=== PATIENT | male | born 1955 | race Caucasian/White ===

== ENCOUNTER 2023-04-24 15:07 | Inpatient (IN) | payer OTHER ==
[~2023-04-24] VITALS: Ht 182.9 cm; Wt 124.0 kg
[~2023-04-24 15:07] MED LIST: NAPROXEN500 MG PO
[2023-04-24 15:20] LABS: BASOPHILS 0.7 % (0-2); EOSINOPHILS 0.5 % (0-6); HEMATOCRIT 46.4 % (35.0-50.0); HEMOGLOBIN 16.1 g/dL (12.0-18.0); MCHC 34.6 g/dl (30-36); MCV 89.6 fl (81-99); MONOCYTES 6.6 % (0-12); NEUTROPHILS 70.2 % (39-80); PLATELET COUNT 260 K/uL (140-440); RBC 5.19 M/ul (4.3-5.7); RDW 12.3 (10.5-15.0)
[2023-04-24 15:26] LABS: PARTIAL THROMBOPLASTIN TIME 29.4 Sec (22.9-41.3)
[2023-04-24 15:27] LABS: INR 0.94 (0.80-1.30); PROTIME 11.9 Sec (11.2-14.2)
[2023-04-24 15:33] LABS: ALBUMIN 3.7 g/dL (3.4-5.0); ALBUMIN/GLOBULIN RATIO 1.03 (1.1-2.4); BILIRUBIN, TOTAL 0.4 ng/dL (0.2-1.0); CREATININE, SERUM 1.25 mg/dL (0.70-1.30); PROTEIN, TOTAL 7.3 g/dL (6.4-8.2)
[2023-04-24] MEDS ORDERED: FENOFIBRATE145 MG PO (16:23)
[2023-04-24] MEDS ORDERED: ATHLETIC FOOT C30 GM TOP (16:24)
[2023-04-24] MEDS ORDERED: METFORMIN HCL500 M2 PO (16:24)
[2023-04-24] MEDS ORDERED: ZESTRIL10 MG PO (16:25)
[2023-04-24] MEDS ORDERED: GLIPIZIDE XL10 MG PO (16:25)
[2023-04-24] MEDS ORDERED: LIPITOR40 MG PO (16:26)
[2023-04-24 18:06] LABS: AMPHETAMINES, UR NEGATIVE (NEGATIVE); BARBITURATES, UR NEGATIVE (NEGATIVE); BENZODIAZEPINES, UR NEGATIVE (NEGATIVE); BUPRENORPHINE,UR NEGATIVE (NEGATIVE); COCAINE, UR NEGATIVE (NEGATIVE); MARIJUANA (THC), UR NEGATIVE (NEGATIVE); MDMA, UR NEGATIVE (NEGATIVE); METHADONE, UR NEGATIVE (NEGATIVE); METHAMPHETAMINE, UR NEGATIVE (NEGATIVE); OPIATES, UR NEGATIVE (NEGATIVE); OXYCODONE, UR NEGATIVE (NEGATIVE); PHENCYCLIDINE, UR NEGATIVE (NEGATIVE); TRICYCLIC ANTIDEPRESSANT, UR NEGATIVE (NEGATIVE)
[2023-04-24 20:06] VITALS: BP 175/75
--- NOTE | 2023-04-24 20:40 | NUR ---
2015 - Pt admitted from ER via stretcher. Pt coop with admit questions and assessment. Oriented to room and procedures. Neuro checks doneon admit, L droop, L sided weakness. tele#[address] SR[address] no c/o CP, does c/o numbness left side face extremties. bruised area uner L little toes present, not open. very dry skin at feet bilat. wearing 4 point EOCI restraints. Due to void. Passed bedside swallowing evaluation. stated he does not eat pork and his diet is closer to rastafari diet, . alert to self, date, surrounding, . 2EOCI guards in room
--- NOTE | 2023-04-24 22:29 | EKG ---
[facility] [address] [place] [address] Signed Normal sinus rhythm Right bundle branch block Abnormal ECG No previous ECGs available Confirmed by Felice Griffiths MD () on 04/24/2023 10:29:16 PM Electronically Signed By: FELICE GRIFFITHS MD 04/24/232228 PATIENT NAME: MAHESH SHEPHERD Electrocardiogram DATE OF : 57 PHYSICIAN: FELICE GRIFFITHS MD REPORT #: [id number] REPORT IS CONFIDENTIAL AND NOT TO BE RELEASED WITHOUT AUTHORIZATION
[2023-04-25] VITALS (11 sets, daily range): BP systolic 143–168; BP diastolic 63–83
--- NOTE | 2023-04-25 00:30 | NUR ---
AWAKES EASILY, ON ROOM AIR, DENIES CP. CONTINUES TO HAVE NUMBNESS AND TINGLING L SIDE, DROOPINES L MOUTH. ANSWERS APPROPIATELY. HAS VOIDED NAD TOLERATED SANDWICH BOX CONTENTS, 4 POINT RESTRAINTS PER EOCI. 2 EOCI GUARDS IN ROOM MRI PAPERWORK COMPLETED AND FAXED TO [facility]
--- NOTE | 2023-04-25 02:26 | NUR ---
pt awakes easily, no c/o CP, continues to have numbness andtingling Left face and L side. tele#3 in place, SR. Coop with assessment. wearing 4 point shckles as per EOCI. legs elevated. tolerating liquids well. 2 EOCI guards in room
--- NOTE | 2023-04-25 04:54 | NUR ---
AWAKES EASILY, ON ROOM AIR, NO CHANGES FROM ADMIT ASSESSMENT, L MOUTH DROOP AND LEFT SIDED WEAKNESS STILL PRESENT. TELE#[address] SINUS RHYTHM. DENIES CP. NEURO CHECKS NO CHANGES. PUPILS FIXED BUT MOVES EYES AND TRACKS CORRECTLY.
[2023-04-25 05:38] LABS: BASOPHILS 0.6 % (0-2); EOSINOPHILS 0.6 % (0-6); HEMOGLOBIN 15.1 g/dL (12.0-18.0); MCHC 33.6 g/dl (30-36); MCV 89.3 fl (81-99); MONOCYTES 8.8 % (0-12); PLATELET COUNT 232 K/uL (140-440); RBC 5.04 M/ul (4.3-5.7); RDW 12.7 (10.5-15.0)
[2023-04-25 05:58] LABS: ALBUMIN 3.3 g/dL (3.4-5.0); ALBUMIN/GLOBULIN RATIO 0.97 (1.1-2.4); ANION GAP 14.2 (7-21); BILIRUBIN, TOTAL 0.5 ng/dL (0.2-1.0); BUN/CREATININE RATIO 14.54 (6.0-28.6); CALCIUM 8.8 mg/dL (8.5-10.1); CHOLESTEROL/HDL RATIO 2.3; CREATININE, SERUM 1.1 mg/dL (0.70-1.30); MAGNESIUM 1.9 mg/dL (1.8-2.4); PHOSPHORUS, INORGANIC 4.4 mg/dL (2.5-4.9); POTASSIUM 4.2 mmol/L (3.5-5.1); PROTEIN, TOTAL 6.7 g/dL (6.4-8.2)
--- NOTE | 2023-04-25 07:05 | NUR ---
HANDOFF REPORT RECEIVED FROM CASCADE OPERATOR RN. PT RESTING IN BED. EOCI OFFICERS AT BEDSIDE.
--- NOTE | 2023-04-25 09:35 | NUR ---
PER AM MEETING PATIENT LIKELY TO DC TODAY AFTER DIAGNOSTIC ASSESSMENTS COMPLETED. SPOKE WITH RN AT [facility]. THEY ARE ABLE TO PROVIDE PT/OT FOR THE PATIENT IF NEEDED. OKAY FOR PATIENT TO RETURN WHEN READY. UPDATED CLINICALS SENT.
--- NOTE | 2023-04-25 09:58 | NUR ---
PT RESTING IN BED, EATING BREAKFAST. EOCI OFFICERS AT BEDSIDE. PT ON RELL KENA, LUNG SOUNDS CLEAR. [facility] STOKE SCORE 2 FOR FACIAL PALSY AND SENSORY. 1+ EDEMA IN BLE, PULSES STRONG. MORNING MEDICATIONS ADMINISTERED BY STUDENT WITH INSTRUCTOR. PT DENIES OTHER NEEDS AT THIS TIME.
--- NOTE | 2023-04-25 10:15 | NUR ---
PT ASSISTED TO BED SIDE COMMODE. PT WITH LEFT LEG WEAKNESS, UNSTABLE ON FEET, HIGH FALL RISK. DISCUSSED WITH Winston
--- NOTE | 2023-04-25 11:54 | NUR ---
UR NOTE [facility] STROKE: ISCHEMIC: OBSERVATION CARE (ISC) 04/24/23 MET OBSERVATION CARE ADMISSION CRITERIA
--- NOTE | 2023-04-25 12:25 | NUR ---
PT GIVEN 5 UNITS SS HUMALOG FOR BG 228. PT CURRENTLY HAVING ECHO COMPLETED.
--- NOTE | 2023-04-25 12:35 | NUR ---
NURSE RN BSN ASSISTED WITH AGITATED SALINE STUDY. ECHO COMPLETED.
--- NOTE | 2023-04-25 14:58 | NUR ---
PT SITTING IN CHAIR, JUST FINISHED WITH PT/OT. PT DENIES NEEDS AT THIS TIME.
--- NOTE | 2023-04-25 16:00 | NUR ---
REPORT RECEIVED FROM RN CARE ASSUMED. PT UP IN THE CHAIR RESTING AGREES HE IS COMFORTABLE AND DENIES NEED OF ANYTHING. ANTHONY PRESENT X2
--- NOTE | 2023-04-25 18:07 | NUR ---
PT FINISHES ENTIRE EVENING MEAL AGREES HE IS FULL. DENIES DISCOMFORTS OR NEEDS. DECLINES OFFER OF RESTING IN BED CHOOSING TO STAY IN THE CHAIR WATCHING TV. ANTHONY PRESENT X2
--- NOTE | 2023-04-25 20:57 | NUR ---
Sitting up in chair. pt on room air. 4 point restraints as per EOCI, 2 guards in room.. neuro checks done, L droopines mouth. L sided weakness. edema to L hand and LE. while waiting for another staff to help with transferring he stood up and tried to get into bed, very unsteady, sat in bed and leaned towards left side, icought by guard. Pt instructed to wait for nursing personnel to help him with transfers to avoid falls. stated understanding. Tele# [address] SR, denies CP. continues to have numbness and tingling of Left extremities. CBG 140, no SS insulin needed. ESL, speaks clear broken Armenian. cooperative. 2 SL patent. Uses urinal
--- NOTE | 2023-04-25 22:56 | NUR ---
RESTING, L SIDE, TELE IN PLACE, 4 POINT REASTRAINT. [address]
[2023-04-26] VITALS (11 sets, daily range): BP systolic 143–157; BP diastolic 63–87
--- NOTE | 2023-04-26 01:02 | NUR ---
RESTING, EYES CLOSED, NO S/SX DISTRESS, TELE#3 IN PLCE SR. EOCI SHACKLES IN PLACE, 2 GUARDS
--- NOTE | 2023-04-26 02:44 | NUR ---
awakes easily, coop with vitals, still with L droop, weakness Left sided
[2023-04-26 05:26] LABS: BASOPHILS 0.5 % (0-2); EOSINOPHILS 1.6 % (0-6); HEMATOCRIT 45.7 % (35.0-50.0); HEMOGLOBIN 15.4 g/dL (12.0-18.0); LYMPHOCYTES 29.3 % (24-44); MCH 30.3 (27-36); MCHC 33.7 g/dl (30-36); MCV 89.9 fl (81-99); MONOCYTES 9.5 % (0-12); NEUTROPHILS 59.1 % (39-80); PLATELET COUNT 225 K/uL (140-440); RBC 5.08 M/ul (4.3-5.7); RDW 12.3 (10.5-15.0)
[2023-04-26 05:35] LABS: ANION GAP 13.2 (7-21); BUN/CREATININE RATIO 13.55 (6.0-28.6); CALCIUM 8.7 mg/dL (8.5-10.1); CREATININE, SERUM 1.18 mg/dL (0.70-1.30); POTASSIUM 4.2 mmol/L (3.5-5.1)
--- NOTE | 2023-04-26 07:46 | NUR ---
RECEIVED REPORT FROM VINCENT BETHEA. PT RESTING IN BED WITH EYES CLOSED, TWO COs AT THE BEDSIDE. PT ALLOWED TO REST. ASSUMING CARE OF PT.
--- NOTE | 2023-04-26 08:34 | NUR ---
PT SITTING UP IN BED EATING BREAKFAST, TWO COs AT THE BEDSIDE. PT DENIES PAIN/NAUSEA/SOB THIS MORNING. PT A+O X3, SPEECH IS CLEAR. LEFT SIDE REMAINS WEAK, ABLE TO PLANTAR FLEX AND DORSIFLEX AGAINST RESISTENCE. PUPILS 3 BILATERALLY, SLUGGISH. LUNG SOUNDS CLEAR IN ALL LOBES. TELEMETRY REMAINS ON, SINUS RYTHYM IN THE 60s PER TELE. LEFT HAND HAS GENERALIZED EDEMA, NO EDEMA REMAINING IN BLE. [address] D/T EOCI. PT STATES LEFT SIDE REMAINS "MOSTLY NUMB". BOWEL TONES ACTIVE IN ALL QUADRANTS, PT TOLERATING 60G CARB DIET WELL. PT STATES NO NEEDS AT THIS TIME, CALL LIGHT WITHIN REACH.
--- NOTE | 2023-04-26 10:05 | NUR ---
PHYSICAL THERAPY IN ROOM WORKING WITH PT.
--- NOTE | 2023-04-26 10:18 | NUR ---
SPOKE WITH HAYDE RONDON WITH THE [facility]. DISCUSSED THAT MD AND PT/OT/ST ARE RECOMMENDING INPATIENT REHAB FOR THE PATIENT AT THIS TIME. HAYDE STATES THEY REFERRAL PATIENTS TO [facility] OR [facility] TO SEND REFERRAL AT THIS TIME. WHEN THE PATIENT IS ACCEPTED CONTACT HAYDE [phone] GRIFFITHS, PT/OT AND KAMALA ACOSTA RN NOTIFIED. REFERRAL FAXED TO [facility] [phone].
--- NOTE | 2023-04-26 10:25 | NUR ---
UR Review: [facility] ADA – ADA review - Stroke Ischemic ISC - Inpatient. 04/25/2022 - Met inpatient guidelines for Ischemic Stroke. Guideline day 1.
--- NOTE | 2023-04-26 10:50 | NUR ---
SBA WHILE PATIENT USED URINAL. 2 OFFICERS IN ROOM. PATIENT BACK INTO RECLINER AT THSI TIME
--- NOTE | 2023-04-26 11:26 | NUR ---
PT UP TO CHAIR AFTER PHYSICAL THERAPY, STATES HE IS DOING THE EXCERSICIES PHYSICAL THERAPY PRINTED OUT FOR HIM. PT DENIES PAIN, STATES NO NEEDS AT THIS TIME.
--- NOTE | 2023-04-26 12:01 | NUR ---
PT UP TO CHAIR EATING LUNCH. STATES NO NEEDS AT THIS TIME. TWO COs AT THE BEDSIDE.
--- NOTE | 2023-04-26 12:57 | NUR ---
SPOKE WITH [facility] IN [place]. PATIENT HAS BEEN ACCEPTED WHEN THEY HAVE A BED AVAILABLE. AT THIS TIME DUE TO THE WEATHER THEY DO NOT BELIEVE THEY WILL HAVE A BED UNTIL EARLY NEXT WEEK. WILL FOLLOW UP WITH [facility] ALVARE[facility]TH[facility] TO DISCUSS OPTIONS.
--- NOTE | 2023-04-26 13:02 | NUR ---
LEFT MESSAGE FOR ADMISSIONS AT [facility] REQUESTING RETURN CALL REGARDING REFERRAL. PHONE [phone].
--- NOTE | 2023-04-26 13:20 | NUR ---
THIS RN ANSWERS CALL LIGHT. PT STATES HE NEEDS TO USE RESTROOM. PT AMBULATES TO RESTROOM WITH X2 PERSON ASSIST AND FWW. PT HAS BM, NEEDS ASSISTANCE WITH CLEANING SELF AFTER. LINENS CHANGED. PT AMBULATES WITH X2PA AND FWW TO BED. PT STATES NO FURTHER NEEDS AT THIS TIME, CALL LIGHT WITHIN REACH, BED RAILS UP. 4 POINT RESTRAINTS REMAIN IN PLACE, TWO COs AT THE BEDSIDE.
--- NOTE | 2023-04-26 13:30 | NUR ---
NO CHANGE IN NEURO ASSESSMENT FROM MORNING ASSESSMENT, PT STATES LEFT SIDE REMAINS WEAK, PUPILS REMAIN SLUGGISH. PT CONTINUES TO USE X1-2PA AND FWW FOR AMBULATION, A+O X3. PT HAS BEEN ABLE TO EAT MEALS AND TAKE MEDICATIONS WITHOUT DIFFICULTY THIS SHIFT.
--- NOTE | 2023-04-26 14:40 | NUR ---
PATIENT RESTING IN BED, WOKE TO VOICE. VITALS AND I&OS CHARTED. 2 OFFICERS IN ROOM.
--- NOTE | 2023-04-26 15:53 | NUR ---
PT RESTING WITH EYES CLOSED ON R SIDE. RR 16 EVEN AND UNLABORED. TWO COs AT BEDSIDE. CALL LIGHT WITHIN REACH.
--- NOTE | 2023-04-26 18:31 | NUR ---
PT SITTING UP IN BED WATCHING TV. PT FINISHED EATING DINNER, REQUESTS TO BRUSH TEACH USING MIRROR FOR OT ACTIVITY. PT ASSISTED WITH PUTTING TOOTHPASTE ON TOOTHBRUSH, INDEPENDENTLY BRUSHES TEETH AND RINSES MOUTH. PT STATES NO FURTHER NEEDS AT THIS TIME, TWO COs AT BEDSIDE.
--- NOTE | 2023-04-26 19:48 | NUR ---
REPORT RECEIVED FROM VINCENT TOTH. pt UP IN CHAIR. GUARDS IN ROOM. pt DENIES NEEDS. CALL LIGHT IN REACH.
--- NOTE | 2023-04-26 21:12 | NUR ---
1PA W FWW FROM CHAIR TO BED WITH GAIT BELT ON FOR SAFETY. pt GAIT STEADY. WEAKNESS NOTED ON LEFT SIDE. NEURO CHECK COMPLETE. IV SITES SL WNL. SS INSULIN ADMINISTERED PER ORDERS. CALL LIGHT IN REACH. GUARDS IN ROOM. pt DENIES PAIN, DENIES TOILETING OR ADDITIONAL NEEDS.
[2023-04-27] VITALS (7 sets, daily range): BP systolic 132–151; BP diastolic 74–86
--- NOTE | 2023-04-27 00:19 | NUR ---
CHECKED ON pt. RESTING IN BED ON LEFT SIDE, BREATHING EQUAL AND UNLABORED. GUARDS IN ROOM, CHANGING SHIFTS AT THIS TIME. CALL LIGHT IN REACH.
--- NOTE | 2023-04-27 03:08 | NUR ---
pt RESTING IN BED AWAKE, STATES "I CAN'T SLEEP WITH TV ON". TV OFF AT THIS TIME. NEURO CHECK COMPLETE, UNCHANGED. GUARDS PRESENT IN ROOM. DRINK OF WATER PROVIDED TO pt. pt DENIES TOILETING NEEDS. CALL LIGHT IN REACH.
--- NOTE | 2023-04-27 06:30 | NUR ---
pt RESTING IN BED AWAKE, DOING EXERCISES FROM PT. NEURO CHECK COMPLETE. UNCHANGED. URINAL EMPTIED. ICE WATER REFILLED. CALL LIGHT IN REACH. GUARDS IN ROOM.
--- NOTE | 2023-04-27 07:36 | NUR ---
RECEIVED REPORT FROM VINCENT LA. ASSUMING CARE OF PT.
--- NOTE | 2023-04-27 11:10 | NUR ---
PT SITTING UP IN BED AWAKE AND ALERT. A+O X3. PT SKIN MOIST, STATES HE HAS BEEN DOING HIS PHYSICAL THERAPY EXCERCISES. LEFT SIDE REMAINS WEAK, PT ABLE TO MOVE FINGERS ON LEFT HAND MORE THAN YESTERDAY, PT STATES L SIDE NUMBNESS HAS MILDLY IMPROVED SINCE YESTERDAY. PT TOLERATING 60G CARB DIET WELL. PT HAS NOT VOIDED SINCE PREVIOUS SHIFT, PO FLUIDS ENCOURAGED, MORE ICE WATER GIVEN. NO CHANGE IN SKIN SINCE YESTERDAY. PT STATES NO NEEDS AT THIS TIME, TWO COs AT THE BEDSIDE, URINAL AT THE BEDSIDE.
--- NOTE | 2023-04-27 11:38 | NUR ---
CALLED [facility] IN [place] TO FOLLOW-UP ON REFERRAL SENT. NO ANSWER. MESSAGE LEFT. [phone]
--- NOTE | 2023-04-27 13:48 | NUR ---
THIS NURSE TALKS WITH DR. GRIFFITHS TO UPDATE ON PT OUTPUT STATUS AND BLOOD PRESSURE. MD AWARE, NEW ORDERS ENTERED, REPEAT BACK PERFORMED.
--- NOTE | 2023-04-27 13:53 | NUR ---
ROUNDS. PHYSICAL THERAPY WORKING WITH PT. DID NOT INTERRUPT. PROVIDED SILENT PRAYER.
--- NOTE | 2023-04-27 14:10 | NUR ---
BLADDER SCAN COMPLETED PER JEROMY FROM DR. GRIFFITHS. 312ML SHOWN ON SCAN. PT STATES NO PAIN OR DISCOMFORT, EDUCATION ON FLUID INTAKE AND VOIDING, PT VERBALIZES UNDERSTANDING. PT STATES NO FURTHER NEEDS AT THIS TIME, PT REMAINS UP TO CHAIR AFTER PHYSICAL THERAPY.
--- NOTE | 2023-04-27 14:31 | NUR ---
UR NOTE MCG STROKE: ISCHEMIC (ISC) INPATIENT 04/26/23 MET GL DAY 2 04/27/23 VARIANCE GL DAY 3
--- NOTE | 2023-04-27 15:45 | NUR ---
PT UP TO CHAIR A+O X3. NO CHANGE IN NEURO ASSESSMENT FROM MORNING. PT CONTINUES TO HAVE NUMBNESS AND WEAKNESS ON THE LEFT SIDE, CONTINUES TO BE ABLE TO MOVE POINTER FINGER ON LEFT HAND. PT CONTINUES TO DO PHYSICAL THERAPY EXCERCISES AT THE CHAIR. PT STATES NO NEEDS AT THIS TIME, TWO COs AT THE BEDSIDE.
--- NOTE | 2023-04-27 16:30 | NUR ---
PT UP TO CHAIR, STATES NO CHANGES. PT DENIES HEADACHE/DIZZINESS/PAIN. PT STATES NO NEEDS AT THIS TIME, TWO COs AT THE BEDSIDE.
--- NOTE | 2023-04-27 19:10 | NUR ---
REPORT RECIEVED FROM JANEY KAUR. BOARD UPDATED. pt DENIES ANY NEEDS AT THIS TIME. CALL LIGHT WITHIN REACH.
--- NOTE | 2023-04-27 20:45 | NUR ---
ASSESSMENT AND VITAL SIGNS DONE. pt TRANSFERED TO THE BED, SBA W/ FWW. IV'S ASSESSED, WNL. pt L ARM WEEKNESS. NO WEEKNESS NOTED IN THE LLL. pt STATES SENSATION IS DIMINISHED IN LEFT SIDE. BG CHECKED, 224. SS INSULIN ADMINISTERED. pt WATER REFRESHED. pt DENIES ANY OTHER NEEDS AT THIS TIME. CALL LIGHT WITHIN REACH.
--- NOTE | 2023-04-28 00:30 | NUR ---
pt RESTING IN THE BED WITH EYE CLOSED. 2 GAURDS IN RM. pt LAYING ON LEFT SIDE. RR EVEN AND UNLABORED. CALL LIGHT WITHIN REACH.
--- NOTE | 2023-04-28 02:21 | NUR ---
pt RESTING IN THE BED WITH EYES CLOSED. RR EVEN AND UNLABORED. NO S/SX OBVIOUS DISTRESS. CALL LIGHT WITHIN REACH.
[2023-04-28 05:01] VITALS: BP 143/74
--- NOTE | 2023-04-28 05:10 | NUR ---
VITAL SIGNS AND ASSESSMENT DONE. 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 LUE WEAK. LLE ABLE TO MOVE. SENSATION DIMINISHED IN LEFT SIDE. WATER REFRESHED. URINAL EMPTIED.
[2023-04-28 08:08] VITALS: BP 133/78
--- NOTE | 2023-04-28 09:08 | NUR ---
Patient awake in bed, no acute distress, alert and oriented x4. Patient denies pain. Slight left sided facial droop noted, speech is clear and appropriate. Patient has left arm weakness, he is unable to grasp my hand. Patient reports numbness to left hand/arm. Vital signs are stable. Patient able to eat independently. No current needs. Personal supplies and call light within reach.
--- NOTE | 2023-04-28 09:39 | NUR ---
Called [facility] at [phone] to verify what day patient may be accepted. No answer. Message left to please call back with callback number left.
--- NOTE | 2023-04-28 10:09 | NUR ---
Spoke with [facility] at [phone]. Will be able to accept patient on Monday between [phone]. Macie's information provided to facility. Left message for Macie with facility phone number.
--- NOTE | 2023-04-28 11:13 | NUR ---
Patient resting in bed, eyes closed, respirations even and non labored. Two correctional officers at bedside. Personal supplies and call light within reach.
[2023-04-28 13:24] VITALS: BP 138/76
--- NOTE | 2023-04-28 13:29 | NUR ---
Patient up to the chair eating lunch, no distress. Patient denies pain. No current needs, personal supplies and call light within reach.
--- NOTE | 2023-04-28 15:02 | NUR ---
UPDATE FAXED TO [facility] [phone]
[2023-04-28 18:18] VITALS: BP 129/70
--- NOTE | 2023-04-28 19:15 | NUR ---
REPORT RECIEVED FROM SUKUMAR KAUR. pt RESTING IN THE BED. ROOM CLEANED. BOARD UPDATED. WATER REFRESHED. pt DENIES ANY OTHER NEEDS AT THIS TIME. CALL LIGTH WITHIN REACH.
--- NOTE | 2023-04-28 21:30 | NUR ---
ASSESSMENT AND VITAL SIGNS DONE. BG CHECKED, 180. SS INSULIN ADMINISTERED, SEE MAR. pt STATES SENSATION IS DIMINISHED ON LEFT SIDE OF BODY. 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 A&O X4. IV FLUSHED, WNL. RADIAL AND PEDAL PULSE PRESENT, CMS INTACT. pt ABLE TO MOVE LLE WITH WITH MINIMAL WEAKNESS. pt DENIES ANY OTHER NEEDS AT THIS TIME. CALL LIGHT WITHIN REACH.
[2023-04-28 21:31] VITALS: BP 143/79
--- NOTE | 2023-04-29 00:15 | NUR ---
pt RESTING IN THE BED WITH EYES CLOSED. RR EVEN AND UNLABORED. NO S/SX OF OBVIOUS DISTRESS. CALL LIGHT WITHIN REACH.
--- NOTE | 2023-04-29 02:10 | NUR ---
pt RESTING IN THE BED WITH EYES CLOSED. RR EVEN AND UNLABORED. NO S/SX OF OBVIOUS DISTRESS. CALL LIGHT WITHIN REACH.
--- NOTE | 2023-04-29 04:05 | NUR ---
pt RESTING IN THE BED WITH EYES CLOSED. RR EVEN AND UNLABORED. NO S/SX OF OBVIOUS DISTRESS. CALL LIGHT WITHIN REACH.
[2023-04-29 05:11] VITALS: BP 150/65
--- NOTE | 2023-04-29 09:45 | NUR ---
Patient awake sitting up in bed, no distress. Patient denies pain at this time. Left arm remains very weak, pt reports ongoing numbness to hand region. Left arm notably a bit stronger this morning as comparted to yesterday, pt able to lift his entire arm a bit easier. Two correctional officers at bedside. Patient denies needs at this time. Personal supplies and call light within reach.
[2023-04-29 10:13] VITALS: BP 133/70
[2023-04-29 10:20] VITALS: BP 133/70
--- NOTE | 2023-04-29 10:32 | NUR ---
WHILE PATIENT WAS WALKING WITH PT. PUT A NEW BLANKET ON THE CHAIR AND BRITTANEY. PATIENT IS NOW SITTING UP IN HIS CHAIR DOING HIS EXERCISES. CHANGED BED LINENS.
[2023-04-29 13:53] VITALS: BP 143/80
--- NOTE | 2023-04-29 15:17 | NUR ---
Patient in chair watching tv, no distress. Patient denies any needs. Two correctional officers at bedside. Personal supplies and call light within reach.
[2023-04-29 18:26] VITALS: BP 134/73
--- NOTE | 2023-04-29 19:20 | NUR ---
REPORT RECIEVED FROM SUKUMAR KAUR. pt SITTING IN THE CHAIR. ROOM CLEANED. BOARD UPDATED. pt DENIES ANY OTHER NEEDS AT THIS TIME. CALL LIGHT WITHIN REACH.
[2023-04-29 20:57] VITALS: BP 146/77
--- NOTE | 2023-04-29 21:05 | NUR ---
ASSESSMENT AND VITAL SIGNS DONE. pt BACK TO BED, SBA WITH FWW TO BED. SENSATION DIMINISHED ON LEFT SIDE. NUMBNESSS AND TINGLING IN LEFT SIDE OF BODY. 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 BG CHECKED, 265. SS INSULIN ADMINISTERED, SEE JUN. IV ASSESSED, WNL. pt DENIES ANY OTHER NEEDS AT THIS TIME. CALL LIGHT WITHIN REACH.
--- NOTE | 2023-04-30 00:10 | NUR ---
pt RESTING IN THE BED WITH EYES CLOSED. RR EVEN AND UNLABORED. NO S/SX OF OBVIOUS DISTRESS. CALL LIGHT WITHIN REACH.
--- NOTE | 2023-04-30 02:07 | NUR ---
pt RESTING IN THE BED WITH EYES CLOSED. RR EVEN AND UNLABORED. NO S/SX OF OBVIOUS DISTRESS. CALL LIGHT WITHIN REACH.
--- NOTE | 2023-04-30 04:11 | NUR ---
pt RESTING IN THE BED WITH EYES CLOSED. RR EVEN AND UNLABORED. NO S/SX OF OBVIOUS DISTRESS. CALL LIGHT WITHIN REACH.
[2023-04-30 05:24] VITALS: BP 136/77
--- NOTE | 2023-04-30 07:03 | NUR ---
Report from Zaheer Sosa RN. Patient in bed with eyes closed. Respirations even and unlabored. 2 guards in room at this time. Allowed to rest. Call light in reach, bed rails up X2.
[2023-04-30 09:13] VITALS: BP 136/72
--- NOTE | 2023-04-30 09:25 | NUR ---
ASSESSMENT COMPLETED. AM MEDICATIONS ADMINISTERED. GUARDS X2 AT BEDSIDE. PATIENT DENIES NEEDS. CALL LIGHT IN REACH.
--- NOTE | 2023-04-30 11:27 | NUR ---
UPDATED NURSE CANDIDO AT [facility] REGARDING PATIENT CONDITION.
[2023-04-30 14:36] VITALS: BP 146/71
[2023-04-30 18:34] VITALS: BP 128/69
--- NOTE | 2023-04-30 19:44 | NUR ---
REPORT RECEIVED FROM VINCENT XIONG. pt UP IN CHAIR. URINAL REPLACED, STAINED. CALL LIGHT IN REACH. GUARDS IN ROOM, pt DENIES NEEDS.
[2023-04-30 20:12] VITALS: BP 160/77
--- NOTE | 2023-04-30 20:30 | NUR ---
pt ASSISTED TO BED FROM CHAIR, SBA WITH FWW, CONTACT ASSIST. GAIT STEADY. NEURO CHECK, ASSESSMENT COMPLETE. IV SITES FLUSHED WNL, SL. pt DENIES PAIN AT REST. LEGS ELEVATED. SS INSULIN ADMINISTERED PER ORDERS. CALL LIGHT IN REACH. GUARDS IN ROOM.
--- NOTE | 2023-04-30 23:55 | NUR ---
CHECKED ON pt, RESTING IN BED WITH EYES CLOSED, BREATHING EQUAL AND UNLABORED. GUARDS IN ROOM.
--- NOTE | 2023-05-01 02:17 | NUR ---
IN ROOM TO CHECK ON pt. GUARDS IN ROOM. pt RESTING IN BED WITH EYES CLOSED, NO DISTRESS NOTED.
--- NOTE | 2023-05-01 04:17 | NUR ---
CHECKED ON pt. RESTING IN BED WITH EYES CLOSED, RR 16. NO DISTRESS NOTED. GUARDS IN ROOM.
[2023-05-01 06:01] VITALS: BP 125/76
--- NOTE | 2023-05-01 06:06 | NUR ---
pt AWAKENS TO VOICE. VSS. NEURO CHECK COMPLETE. ICE WATER REFILLED, URINAL EMPTIED. CALL LIGHT IN REACH. GUARDS IN ROOM.
[2023-05-01 09:28] VITALS: BP 145/62
--- NOTE | 2023-05-01 09:39 | NUR ---
REPORT FROM Yady SUÁREZ RN. PATIENT SITTING UP IN BED. GUARDS IN ROOM, AT BEDSIDE. DENIES NEEDS AT THIS TIME AFTER ASSESSMENT AND MEDICATIONS ADMINISTERED.
[2023-05-01 13:09] VITALS: BP 146/79
--- NOTE | 2023-05-01 13:31 | NUR ---
ROUNDS. PT WORKING WITH PHYSICAL THERAPY. PROVIDED SILENT PRAYER. DID NOT INTERFERE.
--- NOTE | 2023-05-01 13:50 | NUR ---
WORKING WITH PT. AMBULATING IN HALLWAY
[2023-05-01 18:28] VITALS: BP 139/79
--- NOTE | 2023-05-01 19:06 | NUR ---
WHEN WE BROUGHT IN DINNER WE SET UP HIS TOOTH BRUSH HIS TEETH AND PUT A WASH CLOTH BY HIM. WE ALSO WALKED HIM TO THE BATHROOM. HE WAS USING WALKER.
--- NOTE | 2023-05-01 19:33 | NUR ---
REPORT RECEIVED FROM VINCENT XIONG. pt RESTING IN CHAIR. DENIES NEEDS. ICE WATER AND CALL LIGHT WITHIN REACH. GUARDS IN ROOM.
[2023-05-01 20:33] VITALS: BP 166/79
--- NOTE | 2023-05-01 20:56 | NUR ---
pt STANDING WITH FWW, DOING EXERCISES. SBA WITH FWW TO HOSPITAL BED. ASSESSMENT COMPLETE. IV SITES SL WNL. VSS. CALL LIGHT IN REACH.
--- NOTE | 2023-05-01 23:10 | NUR ---
CHECKED ON pt. RESTING IN BED WITH EYES CLOSED. BREATHING UNLABORED. URINAL EMPTIED. GUARDS IN ROOM.
[2023-05-02] VITALS (8 sets, daily range): BP systolic 128–163; BP diastolic 62–84
--- NOTE | 2023-05-02 01:05 | NUR ---
pt RESTING IN BED, BREATHING EQUAL AND UNLABORED. NO DISTRESS NOTED.
--- NOTE | 2023-05-02 03:18 | NUR ---
pt RESTING IN BED, BREATHING UNLABORED. NO DISTRESS NOTED. CALL LIGHT IN REACH. GUARD PROVIDED WITH COFFEE.
--- NOTE | 2023-05-02 06:28 | NUR ---
PT SLEEPING, AWAKENS TO VOICE. VSS. NEURO CHECK COMPLETE. ICE WATER PROVIDED. PO FLUIDS ENCOURAGED. GUARDS IN ROOM.
--- NOTE | 2023-05-02 07:05 | NUR ---
REPORT RECEIVED FROM ROVING CARRIER RN ABHINAV. PATIENT WHITEBOARD UPDATED. PATIENT WITH TWO EOCI GUARDS AT THE BEDSIDE. PATIENT WITH NO FURTHER NEEDS AT THIS TIME. CALL LIGHT AND PERSONAL BELONGINGS ARE WITHIN REACH.
--- NOTE | 2023-05-02 07:27 | NUR ---
Progress notes, PT/OT/ST notes faxed to [facility] and to Macie at [facility]. Rehab would like pt there around 1300 and I reminded Macei of this so they can schedule transport accordingly.
--- NOTE | 2023-05-02 07:32 | NUR ---
Attempted to call and get a phone number for Doc to Doc call and for nurse report as pt will leave am tomorrow.
--- NOTE | 2023-05-02 08:45 | NUR ---
0800 AND 0900 MEDICATIONS ADMINISTERED PER THE EMAR. FULL ASSESSMENT COMPLETE AND DOCUMENTED IN THE CHART. PATIENT WITH LUNG SOUNDS CLEAR BILATERALLY IN ALL LUNG OVALLE. PATIENT ON ROOM AIR. NORMAL S1 AND S2 AUSCULTATED. RADIAL PULSES ARE STRONG BILATERALLY. PATIENT IS ALERT AND ORIENTED TIMES FOUR. PATIENT WITH LEFT SIDED WEAKNESS IN THE LEFT UPPER AND LOWER EXTREMITY. LEFT SIDED FACIAL WEAKNESS NOTED. IV SITES ARE CLEAN, DRY, AND INTACT. PATIENT IV SITES FLUSHED WITH 10 ML NORMAL SALINE AND SALINE LOCKED. BOWEL TONES ARE ACTIVE IN ALL FOUR QUADRANTS. PATIENT STATED TINGLING IN THE LEFT LOWER EXTREMITY. PATIENT STATED NO PAIN AT THIS TIME. PATIENT WITH TWO EOCI GUARDS AT THE BEDSIDE THAT STAND UP UPON ENTERING THE PATIENTS ROOM. PATIENT IS SITTING UPRIGHT IN THE BED AND EATING BREAKFAST. PATIENT STATED NO FURTHER NEEDS AT THIS TIME. CALL LIGHT AND PERSONAL BELONGINGS ARE WITHIN REACH.
--- NOTE | 2023-05-02 09:28 | NUR ---
PATIENT IS SITTING UPRIGHT IN THE BED AND BRUSHING THEIR TEETH. VITAL SIGNS AND INTAKE AND OUTPUT COMPLETE BY STANLEY/CYNDEE RAPP. TWO EOCI GUARDS ARE AT THE BEDSIDE. PATIENT STATED NO FURTHER NEEDS AT THIS TIME. CALL LIGHT AND PERSONAL BELONGINGS ARE WITHIN REACH.
--- NOTE | 2023-05-02 10:38 | NUR ---
I was able to speak with [facility]. Updated notes were faxed for the last two days. She request placement orders. Updated Dr. Jaramillo will complete and I will fax as soon as completed. Let her know I spoke with shailesh from [facility] and plan for now is [facility]olan per EMS. I discussed with Dr. Jaramillo need for orders, med list, and need to call for Doc to Doc report. Phone number given for Dr. Mendoza [phone]. I was later notified by Dr. Jaramillo he completed the doc to doc call.
--- NOTE | 2023-05-02 10:44 | NUR ---
PATIENT UP TO BATHROOM TO , PATIENT IS DIAPHORETIC AND GUARDS ASSISTED IN CHANGING PATIENT'S GOWN. LINENS CHANGED. PATIENT IS SITTING UP IN CHAIR TO DO PHYSICAL THERAPY EXERCISES. ROOM TEMPERATURE ADJUSTED TO 70 DEGREES. NO OTHER NEEDS AT THIS TIME.
--- NOTE | 2023-05-02 12:00 | NUR ---
ORDER FOR ADMISSION FAXED TO [facility]
--- NOTE | 2023-05-02 12:08 | NUR ---
PATIENT GIVEN 3UNITS OF INSULIN TO LEFT ARM FOR BG OF 204. NO OTHER NEEDS AT THIS TIME.
[2023-05-02] MEDS ORDERED: CLOPIDOGREL75 MG PO (12:42)
[2023-05-02] MEDS ORDERED: ASPIRIN81 MG PO (12:43)
--- NOTE | 2023-05-02 13:37 | NUR ---
PATIENT IS SITTING UPRIGHT IN THE RECLINER. PATIENT WITH FRESH CUP OF ICE WATER AT THE BEDSIDE. PATIENT WITH TWO EOCI GUARDS AT THE BEDSIDE. PATIENT STATED NO FURTHER NEEDS AT THIS TIME. CALL LIGHT AND PERSONAL BELONGINGS ARE WITHIN REACH.
--- NOTE | 2023-05-02 14:08 | NUR ---
PATIENT WALKING WITH WALKER WITH PHYSICAL THERAPY AND CORRECTIONAL OFFICERS. PATIENT UP IN HIS CHAIR FOR LUNCH.
--- NOTE | 2023-05-02 14:31 | NUR ---
NOtified by Macie at [facility], EMS transport will be here tomorrow to transport at 10 am.
--- NOTE | 2023-05-02 18:48 | NUR ---
PATIENT IS SITTING UPRIGHT IN THE RECLINER WITH TWO EOCI GUARDS AT THE BEDSIDE. PATIENT GIVEN FRESH ICE FOR HIS WATER. PATIENT WORKING ON PT EXERCISES ON HIS LEFT SIDE. PATIENT STATED NO FURTHER NEEDS AT THIS TIME. CALL LIGHT AND PERSONAL BELONGINGS ARE WITHIN REACH.
--- NOTE | 2023-05-02 19:29 | NUR ---
REPORT RECIEVED FROM DAY SHIFT RN. PATIENT SITTING IN CHAIR. 2 GUARDS IN ROOM. NO CURRENT NEEDS. CALL LIGHT IN REACH.
--- NOTE | 2023-05-02 21:12 | NUR ---
PATIENT RESTING IN BED WITH 2 GUARDS AT BEDSIDE. VS AND I&Os OBTAINED AND RECORDED. SCHEDULED MEDICATIONS ADMINISTERED, SEE MAR. ASSESSMENT COMPLETE. MINIMAL LEFT SIDED DRIFT IN LEFT ARM. PATIENT ALERT AND ORIENTED. FRESH WATER PROVIDED. PATIENT HAS NO FURTHER NEEDS. CALL LIGHT IN REACH.
--- NOTE | 2023-05-02 23:47 | NUR ---
PATIENT RESTING IN BED ON BACK WITH EYES CLOSED. RESPIRATIONS EVEN AND UNLABORED. 2 GUARDS IN ROOM. NO FURTHER NEEDS. CALL LIGHT IN REACH.
--- NOTE | 2023-05-03 01:33 | NUR ---
PATIENT RESTING IN BED IN BACK WITH EYES CLOSED. RESPIRATIONS EVEN AND UNLABORED. 2 GUARDS IN ROOM. NO FURTHER NEEDS. CALL LIGHT IN REACH.
--- NOTE | 2023-05-03 03:41 | NUR ---
PATIENT RESTING IN BED ON BACK WITH EYES CLOSED. REPIRATIONS EVEN AND UNLABORED. CALL LIGHT IN REACH. 2 GUARDS IN ROOM.
[2023-05-03 06:26] VITALS: BP 145/74
--- NOTE | 2023-05-03 06:31 | NUR ---
PATIENT RESTING IN BED. VS AND I&Os OBTAINED AND RECORDED. ASSESSMENT COMPLETE. PATIENT HAS A MINIMAL LEFT ARM DRIFT. NO COMPLAINTS OF PAIN. PATIENT HAS NO FURTHER NEEDS. CALL LIGHT IN REACH. 2 GUARDS AT BEDSIDE.
--- NOTE | 2023-05-03 07:10 | NUR ---
REPORT RECEIVED FROM WIRE COILER RN DEBBIE. PATIENT IS LYING IN BED WITH TWO EOCI GUARDS AT THE BEDSIDE. UPON ENTERING THE ROOM THE PATIENT STATED HAVE A CHEST PAIN AND A PRESSURE. BP WAS TAKEN AND IT WAS 135/74 WITH A MAP OF 88. HR WAS 62. CALL MADE TO AND GIVEN UPDATES. STAT EKG ORDER RECEIVED. NO FURTHER ORDERS AT THIS TIME. CALL LIGHT AND PERSONAL BELONGINGS ARE WITHIN REACH.
--- NOTE | 2023-05-03 07:20 | NUR ---
Notified by charge nurse, pt has c/o chest pain. A stat EKG and labs were drawn. feels pt will still be able to dc today. They will draw another troponin prior at 9:45.
--- NOTE | 2023-05-03 08:30 | NUR ---
Pt was discussed by Dr. Lopez in 829 meeting and plan remains for pt to dc to rehab as long at 9:45 troponin has not increased.
[2023-05-03 08:39] LABS: ANION GAP 13.2 (7-21); BUN/CREATININE RATIO 17.3 (6.0-28.6); CALCIUM 8.8 mg/dL (8.5-10.1); CREATININE, SERUM 1.04 mg/dL (0.70-1.30); POTASSIUM 4.2 mmol/L (3.5-5.1)
--- NOTE | 2023-05-03 09:00 | NUR ---
Called and spoke with Carol from [facility] and updated. She requests the lab and the EKG. She states pt may still admit if he is cleared by . I then called Macie at [facility] and updated. She request we proceed with plan for dc. EMS Transport has been scheduled for 10:00. I let her know there could be a slight delay and she states this is fine. If labs are good to dc pt to [facility].
--- NOTE | 2023-05-03 10:00 | NUR ---
Spoke with charge entry specialist. Labs were drawn at 0945 and have not posted at this time. Transport arrives and I updated we are waiting for lab to return. They asked if they could go ahead and load the pts and I declined. I told them where the cafeteria is and asked if they could have a cup a coffee for 20 minutes or so. They were agreeable.
--- NOTE | 2023-05-03 10:15 | NUR ---
PATIENT 0800 AND 0900 MEDICATIONS ADMINISTERED PER THE EMAR. PATIENT NIH COMPLETE AND THE SCORE WAS 2. PATIENT VITAL SIGNS: BP 134/66, MAP 83, HR 73, TEMPERATURE 97.6 F, SPO2 97%, AND RR 24. PATIENT LUNG SOUNDS ARE CLEAR BILATERALLY IN ALL LUNG OVALLE AND THE PATIENT IS ON ROOM AIR. PATIENT WITH NORMAL S1 AND S2 AUSCULTATED. RADIAL PULSES ARE STRONG BILATERALLY. BOWEL TONES ARE ACTIVE IN ALL FOUR QUADRANTS. PATIENT BREAKFAST COMPLETE. PATIENT STATED NO PAIN AT THIS TIME. PATIENT IS ALERT AND ORIENTED TIMES FOUR. PATIENT WITH LEFT SIDED WEAKNESS IN THE LEFT ARM AND LEFT LEG. PATIENT WITH SMALL LEFT SIDE FACIAL DROOP. PATIENT OUTPUT WAS 250 RIGHT BEFORE TRANSFER. PATIENT STATED NO FURTHER NEEDS AT THIS TIME. TWO EOCI GUARDS ARE AT THE BEDSIDE. TWO IV REMOVED PRIOR TO DISCHARGE. DISCHARGE ENVELOPE SENT WITH THE PATIENT
--- NOTE | 2023-05-03 10:22 | NUR ---
Labs back and is lower. I called and confirmed with [facility] they are still ok with admission and Qamar agrees. Asked to have the nurse call their main number for report. I gave this to the Charge nurse. Updated Dr. Lopez of lab and pt august, notified transport and pt was loaded for transfer to [facility] in [place] for rehab.
[2023-05-03 11:18] VITALS: BP 148/66
--- NOTE | 2023-05-03 11:40 | NUR ---
NOTIFIED TO GIVE REPORT. FACILITY STATED THEY WOULD CALL ME BACK WHEN THEY WERE READY TO RECEIVE REPORT FOR THE PATIENT. CALL ENDED.
--- NOTE | 2023-05-03 13:26 | NUR ---
M[facility]UND [facility]ERRERA AND THEY ARE NOT READY FOR REPORT.
--- NOTE | 2023-05-07 17:30 | EKG ---
[facility] [address] [facility] [place], [place] [address] Signed Normal sinus rhythm Right bundle branch block Abnormal ECG Confirmed by Joe Daniels M.D. ([id number]) on 05/07/2023 5:29:58 PM Electronically Signed By: JOE DANIELS 05/07/23 1730 PATIENT NAME: MAHESH SHEPHERD Electrocardiogram DATE OF : 57 PHYSICIAN: JOE DANIELS REPORT #: [id number] REPORT IS CONFIDENTIAL AND NOT TO BE RELEASED WITHOUT AUTHORIZATION
== END 2023-05-03 10:40 | disposition short-term general hospital (02) | DRG 65 ==
LOC: ED 15:07 → MS 15:09
PROVIDERS: Emergency Medicine; Internal Medicine; ADMIT Family Medicine; ATTEND Internal Medicine
DX: I63.9 Cerebral infarction, unspecified (principal); G81.94 Hemiplegia, unspecified affecting left nondominant side; J32.4 Chronic pansinusitis; E78.1 Pure hyperglyceridemia; E66.9 Obesity, unspecified; E11.9 Type 2 diabetes mellitus without complications; R29.810 Facial weakness; R47.1 Dysarthria and anarthria; I10 Essential (primary) hypertension; R29.702 NIHSS score 2; Z79.84 Long term (current) use of oral hypoglycemic drugs; Z68.36 Body mass index [BMI] 36.0-36.9, adult
CPT/HCPCS: 36415; 51798; 70450; 70496; 70498; 70551; 71045; 80048; 80053; 80061; 80307; 83036; 83735; 84100; 84484; 85025; 85610; 85730; 92526; 92610; 93005; 93010; 93306; 96372; 97110; 97116; 97140; 97163; 97166; 97530; 97535; A9270; G0378; J1650; J1815; Q9967